=== PATIENT | male | born 1955 | race Caucasian/White ===

== ENCOUNTER 2018-07-22 16:47 | Emergency (ER) | payer OTHER ==
[2018-07-22 16:52] VITALS: BP 134/91
--- NOTE | 2018-07-22 17:39 | ER Document Report ---
HPI - HPI Time Seen by Provider: 07/22/18 17:35 Pain Level: 4 Notes: Patient is a 63-year-old male with a history of hypertension who presents complaining of right heel pain and left knee pain/swelling over the past couple weeks. Patient states that he has been on his feet more at work and has noticed increased pain without any injury or precipitating event. Patient states [facility] so he wanted to get evaluated here. Denies drug allergies. No surgical history to his knee or his ankle/foot. No history of gout or septic arthritis. Denies any headache, fever, neck pain, URI, sore throat, chest pain, palpitations, syncope, cough, shortness of breath, wheeze, dyspnea, abdominal pain, nausea/vomiting/diarrhea, urinary retention, dysuria, hematuria, loss of control of bowel or bladder, numbness/tingling, muscle paralysis/weakness, or rash. - ROS Systems Reviewed and Negative: Yes All other systems reviewed and negative Past Medical History - Social History Smoking Status: Current Some Day Smoker Family History: Reviewed & Not Pertinent Vertical Provider Document - CONSTITUTIONAL Agree With Documented VS: Yes Notes: PHYSICAL EXAMINATION: GENERAL: Well-appearing, well-nourished and in no acute distress. LUNGS: Breath sounds clear to auscultation bilaterally and equal. No wheezes rales or rhonchi. HEART: Regular rate and rhythm without murmurs, rubs, gallops. Musculoskeletal: Lt knee: + mild swelling/effusion noted w/o warmth or erythema. No obvious ecchymosis or deformity. FROM to passive/active and flexion >90 w/o difficulty. Strength 5+/5. N/V intact distal. + mild medial joint line tenderness. Ligamentous grossly stable, limited exam with larger leg size. Mikhail grossly negative. Patellar grind negative. No calf tenderness. Rt foot/ankle: No ecchymosis, swelling, erythema, warmth, or deformity. FROM to passive/active. Strength 5+/5. N/V intact distal. + tenderness to the heel of the foot. No other bony tenderness of the foot/ankle. Achilles intact. Lis Franc maneuver neg. Anterior drawer neg. Extremities: No cyanosis, clubbing, or edema b/l. Peripheral pulses 2+. Capillary refill less than 3 seconds. Chandu neg b/l. NEUROLOGICAL: Normal speech, limping gait. Normal sensory, motor exams PSYCH: Normal mood, normal affect. SKIN: Warm, Dry, normal turgor, no rashes or lesions noted. - INFECTION CONTROL TRAVEL OUTSIDE OF THE [place] IN LAST 30 DAYS: No Course - Re-evaluation Re-evalutation: 07/22/18 18:18 Patient is an afebrile, well-hydrated, 63-year-old male who presents to the ED with left knee pain and effusion (without erythema/warmth), ?internal involvement. Vitals are acceptable without any significant tachycardia, tachypnea, or hypoxia. PE is otherwise unremarkable for any neurovascular compromise, obvious tendon/ligament rupture, obvious fracture/dislocation, septic joint. X-ray was otherwise unremarkable for any acute pathology. Patient declined any Tylenol or ice. Patient is nontoxic-appearing. Patient is able to ambulate and weight-bear although he is limping. No other labs or imaging warranted at this time based on H&P. Conservative measures otherwise for symptoms. Recheck with your PCM in 3-5 days. Schedule consult with orthopedics. Return to the ED with any worsening/concerning symptoms otherwise as reviewed in discharge. Patient is in agreement. - Vital Signs Vital signs: Temp Pulse Resp BP Pulse Ox 97.7 F 87 15 134/91 H 94 07/22/18 16:51 07/22/18 16:51 07/22/18 16:51 07/22/18 16:51 07/22/18 16:51 Discharge - Discharge Clinical Impression: Pain of right heel Left knee pain Qualifiers: Chronicity: acute Qualified Code(s): M25.562 - Pain in left knee Condition: Stable Disposition: HOME, SELF-CARE Additional Instructions: Rest, Ice, Compression, Elevation Tylenol/ibuprofen as needed Light stretches daily Strength exercises as able Moist heat and massage may help F/u with your PCP in 3-5 days for a recheck Schedule an appointment with orthopedics for further evaluation and management Return to the ED with any worsening symptoms and/or development of fever, headache, chest pain, palpitations, syncope, shortness of breath, trouble breathing, abdominal pain, n/v/d, muscle weakness/paralysis, numbness/tingling, swelling, redness, or other worsening symptoms that are concerning to you. Prescriptions: Naproxen 500 mg PO BID #14 tablet Forms: Elevated Blood Pressure, Smoking Cessation Education Referrals: [facility] [Provider Group] - Follow up as needed
--- NOTE | 2018-07-22 18:02 | RADIOLOGY REPORT (SQ) ---
EXAM DESCRIPTION: KNEE LEFT 4 VIEW COMPLETED DATE/TIME: 07/22/2018 5:52 pm REASON FOR STUDY: left knee pain/swelling COMPARISON: None. EXAM PARAMETERS: NUMBER OF VIEWS: Four views. TECHNIQUE: AP, lateral and 2 oblique radiographic images acquired of the left knee. LIMITATIONS: None. FINDINGS: MINERALIZATION: Normal. BONES: No acute fracture or dislocation. No worrisome bone lesions. JOINTS: Moderate effusion. SOFT TISSUES: No significant soft tissue swelling. No radiopaque foreign body. OTHER: No other significant finding. IMPRESSION: NO FRACTURE.Moderate effusion. TECHNICAL DOCUMENTATION: JOB ID: [id number] [place]-72 2010 [employer]- All Rights Reserved Reading location - IP/workstation name: [email or web address]
== END 2018-07-22 18:42 | disposition home or self-care (01) ==
LOC: ER 16:47
DX: M79.671 Pain in right foot (principal); M25.562 Pain in left knee; M25.462 Effusion, left knee; F17.200 Nicotine dependence, unspecified, uncomplicated
CPT/HCPCS: 99283

== ENCOUNTER 2018-10-18 09:21 | Emergency (ER) | payer OTHER ==
[2018-10-18 09:28] VITALS: BP 143/97
[2018-10-18] MEDS ORDERED: CLINDAMYCIN HCL 150 MG CAPSULE PO ONE (09:43)
[2018-10-18] MEDS ORDERED: KETOROLAC TROMETHAMINE INJ/PF 30 MG/1 ML SDV IM ONE (09:43)
--- NOTE | 2018-10-18 09:49 | ER Document Report ---
HPI - HPI Time Seen by Provider: 10/18/18 09:36 Pain Level: 5 Context: Patient is a 63-year-old male presents to the emergency department with a chief complaint of right lower dental pain. Patient states he has had multiple broken teeth and needs to see a dentist but does not have insurance. Patient states he developed pain yesterday and some right lower facial swelling. Patient states he is taken ibuprofen for his left chronic knee pain but this is not helped with his discomfort. Patient reports he did use Orajel with relief of pain. Patient denies fever, difficulty swallowing or breathing. Past Medical History - General Information source: Patient - Social History Smoking Status: Current Some Day Smoker Family History: Reviewed & Not Pertinent - Past Medical History Cardiac Medical History: Reports: Hx Hypertension Pulmonary Medical History: Reports: None EENT Medical History: Reports: None Neurological Medical History: Reports: None Endocrine Medical History: Reports: None Renal/ Medical History: Reports: None. Denies: Hx Peritoneal Dialysis Malignancy Medical History: Reports None GI Medical History: Reports: None Musculoskeletal Medical History: Reports None Skin Medical History: Reports None Psychiatric Medical History: Reports: None Traumatic Medical History: Reports: None Infectious Medical History: Reports: None Past Surgical History: Reports: Hx Orthopedic Surgery - right finger Vertical Provider Document - CONSTITUTIONAL Agree With Documented VS: Yes Exam Limitations: No Limitations General Appearance: No Apparent Distress - INFECTION CONTROL TRAVEL OUTSIDE OF THE [place] IN LAST 30 DAYS: No - HEENT HEENT: Atraumatic, Normocephalic, PERRLA Mouth Diagram: 1 - Broken tooth - with surrounding erythema but no palpable abscess. Pt. does have right lower facial swelling. Airway patent. Patient has extremely poor dentation with multiple broken teeth. - RESPIRATORY Respiratory: Breath Sounds Normal, No Respiratory Distress - CARDIOVASCULAR Cardiovascular: Regular Rate, Regular Rhythm - GI/ABDOMEN Gastrointestinal: Abdomen Soft, Abdomen Non-Tender, Normal Bowel Sounds - NEURO Level of Consciousness: Awake, Alert, Appropriate - DERM Integumentary: Warm, Dry, No Rash Course - Re-evaluation Re-evalutation: 10/18/18 09:49 Due to the patient's right lower facial swelling I will start him on clindamycin. Patient denies allergies. Will give patient his first dose while in the emergency department as well as a shot of Toradol. Patient given strict return precautions. - Vital Signs Vital signs: Temp Pulse Resp BP Pulse Ox 98.1 F 109 H 16 143/97 H 93 10/18/18 09:27 10/18/18 09:27 10/18/18 09:27 10/18/18 09:27 10/18/18 09:27 Discharge - Discharge Clinical Impression: Dental infection, Dental caries, Poor dental hygiene Condition: Stable Disposition: HOME, SELF-CARE Additional Instructions: Today you were seen in the emergency department for a dental infection and mild facial swelling. Your physical examination was consistent with a dental infection. We have given you your first dose of oral antibiotics which is called clindamycin. You will take this medication 3 times per day for the next 7 days to help with the infection. Please take this for its full course even though you may start to feel better. You may also use Tylenol and ibuprofen as needed for the pain. Please follow-up with the [facility] as he may need to have this tooth pulled. Please return to the emergency department if you develop a fever, increased facial swelling, difficulty breathing, difficulty swallowing or any other concerning signs or symptoms. Dental Infection or Abscess You have an infection, perhaps an abscess (pus formation) of the gum around one of your teeth, which is probably decayed. If there is an abscess, it may drain on its own or it may need to be opened or lanced. Severe swelling or drainage around a tooth usually means a deep dental abscess which usually requires evaluation and treatment by a dentist or oral surgeon. Antibiotics may be prescribed while awaiting dental treatment. If you develop high fever with chills, worsening pain, or increasing sw elling in the area, see a dentist or oral surgeon immediately or return to the Emergency Department immediately. Prescriptions: Clindamycin HCl [Cleocin 150 mg Capsule] 450 mg PO TID 7 Days #63 capsule Forms: Smoking Cessation Education Referrals: [facility] [Provider Group] - Follow up as needed
== END 2018-10-18 10:26 | disposition home or self-care (01) ==
LOC: ER 09:21
DX: K04.7 Periapical abscess without sinus (principal); K02.9 Dental caries, unspecified; K08.89 Other specified disorders of teeth and supporting structures; F17.200 Nicotine dependence, unspecified, uncomplicated; I10 Essential (primary) hypertension; M25.569 Pain in unspecified knee; Z79.1 Long term (current) use of non-steroidal anti-inflammatories (NSAID)
CPT/HCPCS: 99282; 96372; J1885

== ENCOUNTER → 2019-03-27 | Outpatient (CLI) | payer OTHER ==
--- NOTE | 2019-03-28 09:58 | RADIOLOGY REPORT (SQ) ---
EXAM DESCRIPTION: MRI LT LOWER JOINT WITHOUT COMPLETED DATE/TIME: 03/27/2019 12:56 pm REASON FOR STUDY: M25.562 PAIN IN LEFT KNEE M25.562 PAIN IN LEFT KNEE COMPARISON: None. TECHNIQUE: Leftknee images acquired and stored on PACS. Multiplanar images include fat sensitive se quences as T1, water sensitive sequences as FST2 or STIR, cartilage sensitive sequences as FSPD, and gradient echo sequences. LIMITATIONS: None. FINDINGS: JOINT AND BURSAE: Large joint effusion. No popliteal cyst. BONE CORTEX AND MARROW: No occult fracture or marrow replacement. ACL: Mucoid degeneration of the ACL. No tear. PCL: Intact. MCL: Intact. No periligamentous edema or fluid. LCL: Intact. No periligamentous edema or fluid. MEDIAL MENISCUS: Nondisplaced flap tear with small vertical radial tear mid meniscus. LATERAL MENISCUS: No tears. No abnormal signal. MEDIAL COMPARTMENT: There is an extremely large osteochondral lesion involving a significant portion of the weight-bearing surface. Measures 3 cm AP by 2.5 cm transverse. Generalize edema with irregul ar cartilage and partial displacement of cartilaginous fragments. LATERAL COMPARTMENT: Cartilage preserved. No bone bruises or reactive marrow edema. No osteophytes. PATELLA: Chondromalacia of the medial facet. Trochlear cartilage is intact. EXTENSOR MECHANISM: Intact. Quadriceps and patella tendons normal. SOFT TISSUES: Adjacent muscles and subcutaneous tissues normal. Normal flow void in popliteal artery and vein. OTHER: No other significant finding. IMPRESSION: Very large osteochondral lesion of the medial femoral condyles with fragmentation, react humble edema, and partial displacement of cartilaginous fragment. Large joint effusion. Chondromalacia patella. Small flap tear with vertical radial component medial meniscus. TECHNICAL DOCUMENTATION: JOB ID: [id number] 2010 [employer]- All Rights Reserved Reading location - IP/workstation name: [email or web address]
== END ==
LOC: WI 12:04
PROVIDERS: ATTEND Orthopaedic Surgery
DX: M25.462 Effusion, left knee (principal); M25.562 Pain in left knee; M22.42 Chondromalacia patellae, left knee

== ENCOUNTER 2019-04-11 05:24 | Day surgery (SDC) | payer OTHER ==
[2019-04-09 10:19] LABS: ABSOLUTE EOSINOPHILS # (AUTO) 0.1 10^3/uL (0.0-0.6); ABSOLUTE LYMPHOCYTES (AUTO) 1.8 10^3/uL (0.5-4.7); ABSOLUTE MONOCYTES (AUTO) 0.7 10^3/uL (0.1-1.4); ABSOLUTE NEUT (AUTO) 4.8 10^3/uL (1.7-8.2); BASOPHILS % (AUTO) 0.6 % (0-2); EOSINOPHILS % (AUTO) 1.4 % (0-6); HEMATOCRIT 45.3 % (37.9-51.0); HEMOGLOBIN 15.8 g/dL (13.5-17.0); LYMPHOCYTES % (AUTO) 24.2 % (13-45); MEAN CORPUSCULAR HEMOGLOBIN 33.8 pg (27.0-33.4); MEAN CORPUSCULAR HGB CONC 34.9 g/dL (32.0-36.0); MEAN CORPUSCULAR VOLUME 97 fl (80-97); MONOCYTES % (AUTO) 9.8 % (3-13); PLATELET COUNT 267 10^3/uL (150-450); RED BLOOD COUNT 4.68 10^6/uL (4.35-5.55); RED CELL DISTRIBUTION WIDTH 13.1 % (11.5-14.0); TOTAL CELLS COUNTED % (AUTO) 100 %; WHITE BLOOD COUNT 7.6 10^3/uL (4.0-10.5)
[2019-04-09 10:50] LABS: ANION GAP 10 (5-19); BLOOD UREA NITROGEN 13 mg/dL (7-20); CALCIUM 9.5 mg/dL (8.4-10.2); CARBON DIOXIDE 29 mmol/L (22-30); CHLORIDE 96 mmol/L (98-107); GLUCOSE 104 mg/dL (75-110); POTASSIUM 4.4 mmol/L (3.6-5.0)
--- NOTE | 2019-04-09 13:28 | RADIOLOGY REPORT (SQ) ---
EXAM DESCRIPTION: CHEST PA/LATERAL COMPLETED DATE/TIME: 04/09/2019 9:22 am REASON FOR STUDY: PRE-OP COMPARISON: None. EXAM PARAMETERS: NUMBER OF VIEWS: two views TECHNIQUE: Digital Frontal and Lateral radiographic views of the chest acquired. RADIATION DOSE: NA LIMITATIONS: none FINDINGS: LUNGS AND PLEURA: No opacities, masses or pneumothorax. No pleural effusion. MEDIASTINUM AND HILAR STRUCTURES: Large hiatal hernia. HEART AND VASCULAR STRUCTURES: Heart normal size. No evidence for failure. BONES: No acute findings. HARDWARE: None in the chest. OTHER: No other significant finding. IMPRESSION: Large hiatal hernia. No acute cardiopulmonary findings. TECHNICAL DOCUMENTATION: JOB ID: [id number] 2010 [employer]- All Rights Reserved Reading location - IP/workstation name: [email or web address]
--- NOTE | 2019-04-09 18:14 | EKG REPORT ---
SEVERITY:- NORMAL ECG - SINUS RHYTHM : Confirmed by: Prachi Jenkins MD 09-Apr-2019 18:13:07
[~2019-04-11 05:24] MED LIST: CEFAZOLIN SODIUM 2 GM in DEXTROSE 5%-WATER 100 ML IV PRN; LACTATED RINGERS 1000 ML IV PRN; LIDOCAINE 0.5% INJ-PF (5 MG/ML) 50 ML SDV SUBCUT PRN
[2019-04-11 06:02] LABS: APPEARANCE,URINE CLEAR; BILIRUBIN,URINE NEGATIVE (NEGATIVE); COLOR,URINE YELLOW; GLUCOSE, URINE NEGATIVE (NEGATIVE); KETONES,URINE NEGATIVE (NEGATIVE); LEUKOCYTE ESTERASE,URINE NEGATIVE (NEGATIVE); NITRITE,URINE NEGATIVE (NEGATIVE); PROTEIN,URINE NEGATIVE (NEGATIVE); URINE SPECIFIC GRAVITY 1.008
[2019-04-11] MEDS ORDERED: BUPIVACAINE HCL 0.5 % INJ/PF 30 ML SDV ONE (07:07)
[2019-04-11] MEDS ORDERED: LIDOCAINE 1%/EPINEPHRINE INJ 20 ML VIAL ONE (07:07)
[2019-04-11] MEDS ORDERED: ONDANSETRON HCL INJ/PF 4 MG/2 ML SDV IV PRN (07:52)
[2019-04-11] MEDS ORDERED: DIPHENHYDRAMINE HCL 50 MG/ML VIAL IV PRN (07:52)
[2019-04-11] MEDS ORDERED: PROMETHAZINE HCL INJ 25 MG/1 ML VIAL IV PRN ×2 (07:52)
[2019-04-11] MEDS ORDERED: FENTANYL CITRATE INJ/PF 100 MCG/2 ML AMPUL IV PRN ×3 (07:52)
[2019-04-11] MEDS ORDERED: MEPERIDINE HCL/PF INJ 25 MG/1 ML DISP.SYRIN IV PRN (07:52)
[2019-04-11] MEDS ORDERED: OXYCODONE-ACETAMINOPHEN 5-325 MG TABLET PO PRN ×2 (07:52)
--- NOTE | 2019-04-11 08:07 | Operative Report ---
Operative Report DATE OF SURGERY: 04/11/19 PREOPERATIVE DIAGNOSIS: Left medial femoral condyle osteochondral lesion POSTOPERATIVE DIAGNOSIS: Left medial femoral condyle osteochondral lesion measuring at least 2-1/2 cm. Medial meniscal tear. Intact ACL. Lateral meniscal tear. Grade I-II chondromalacia lateral compartment. Grade II chondromalacia of the patellofemoral compartment OPERATION: Arthroscopic left partial medial lateral meniscectomy, abrasion chondroplasty of the medial femoral condyle SURGEON: JAGDEEP CHAWLA ANESTHESIA: LMAC TISSUE REMOVED OR ALTERED: Articular cartilage to pathology ESTIMATED BLOOD LOSS: Normal PROCEDURE: With the patient supine on the operating table left lower extremities prepped and draped in sterile fashion. The knee is insufflated with a combination of Marcaine, Xylocaine, and epinephrine. Subsequent medial lateral patella portals are created for the introduction the arthroscope and debridements mentation. The joint is examined in systematic fashion findings as above. Of note there is a large amount of delaminating articular cartilage from the medial femoral condyle that seems to have a layer of a bone still attached. These are debrided and removed using a grabber. A partial medial meniscectomy was performed from approximately 9:00 to 12:00 on the face of the dial. A partial lateral meniscectomy performed from approximately 6:00 to 2:00 on the face of the dial. The large articular defect in the medial femoral condyle is then subjected to microfracture using bone awls. At this point the joint is again sampled in systematic fashion to ensure that no loose bodies remain. The instrumentation was removed. The portals reapproximated interrupted nylon. A sterile compressive dressing was applied. The patient was returned to the PACU in satisfactory condition.
--- NOTE | 2019-04-11 08:08 | Discharge Summary ---
Discharge Summary (SDC) - Discharge Final Diagnosis: Left medial femoral condyle osteochondral lesion Date of Surgery: 04/11/19 Discharge Date: 04/11/19 Condition: Good Treatment or Instructions: Weightbearing as tolerated ambulation. Remove compressive wrap on Tuesday. Underlying OpSite dressing can be left in place until you return to the office. You can shower but after the compressive wrap is removed but please do not immerse it in a tub. [facility] - Discharge Diet: Regular Respiratory Treatments at Home: Deep Breathing/Coughing Discharge Activity: Balance Activity w/Rest, No tub bath Home Care Assistance: None Needed Report the Following to Your Physician Immediately: Shortness of Breath, Fever over 101 Degrees, Drainage-Foul Smelling
[2019-04-11 10:22] VITALS: BP 136/95
== END 2019-04-11 09:45 | disposition home or self-care (01) ==
LOC: OROUT 05:24
PROVIDERS: ATTEND Orthopaedic Surgery
DX: M23.301 Other meniscus derangements, unspecified lateral meniscus, left knee (principal); M23.304 Other meniscus derangements, unspecified medial meniscus, left knee; M22.42 Chondromalacia patellae, left knee; S72.412D Displaced unspecified condyle fracture of lower end of left femur, subsequent encounter for closed fracture with routine healing; X58.XXXD Exposure to other specified factors, subsequent encounter; I10 Essential (primary) hypertension; F17.210 Nicotine dependence, cigarettes, uncomplicated
CPT/HCPCS: 93005; 36415 ×2; 84132; 85025; 80048; 81001; 88305 ×2; 88311; 71046; 93010; 01400; 29880; J2250; J3490 ×2; J0690; J3010; J2405; J7060; J2704; 1400

== ENCOUNTER 2019-04-30 09:07 | Day surgery (SDC) | payer OTHER ==
[~2019-04-30 09:07] MED LIST changes: -CEFAZOLIN SODIUM 2 GM in DEXTROSE 5%-WATER 100 ML IV PRN; -LACTATED RINGERS 1000 ML IV PRN; -LIDOCAINE 0.5% INJ-PF (5 MG/ML) 50 ML SDV SUBCUT PRN; +PROPOFOL INJ 200 MG/20 ML VIAL IV ONE
[2019-04-30 11:23] VITALS: BP 144/96
--- NOTE | 2019-04-30 12:22 | Operative Report ---
Operative Report DATE OF SURGERY: 04/30/19 Operative Report: The risk, benefits and alternatives of the procedure including the risk of bleeding, perforation requiring surgery have been explained to the patient in detail and informed consent has been obtained. Patient is placed in a left, lateral decubital position. Timeout was called. Propofol medication is administered. Rectal examination is done which did not reveal any masses, tears or fissures. An Olympus videoscope was introduced into the patient's rectum. Scope was then carefully advanced all the way to the cecum. Cecum was identified by the usual anatomical landmarks including the ileocecal valve as well as the appendiceal office. Photodocumentation is obtained. Scope was then sequentially pulled back via the various segments of the colon including the ascending colon, back flexure, transverse colon, splenic flexure, descending colon and finally into the rectosigmoid portions of the colon. Retroflexion maneuver is performed. PREOPERATIVE DIAGNOSIS: Personal history of polyp POSTOPERATIVE DIAGNOSIS: Sigmoid polyp was removed via snare polypectomy and retrieved. Diverticulosis without any evidence of diverticulitis. Internal hemorrhoids. Right colon inflammation status post biopsy OPERATION: Colonoscopy with snare polypectomy. Colonoscopy with biopsy SURGEON: ANDI RODRIGUEZ ANESTHESIA: LMAC TISSUE REMOVED OR ALTERED: As noted above. COMPLICATIONS: None. ESTIMATED BLOOD LOSS: None. INTRAOPERATIVE FINDINGS: As noted above. PROCEDURE: Patient tolerated the procedure well. No immediate postprocedure complications are noted. Patient is discharged in good condition. Discharge date 04/30/2019. Discharge diet: Regular. Discharge activity: Regular. 2 to 3-week follow-up to discuss findings. 3 to 5-year surveillance colonoscopy. Patient is instructed to call the office or proceed to the emergency room should there be any further problems or questions. Wait on the pathology.
== END 2019-04-30 11:30 | disposition home or self-care (01) ==
LOC: END 09:07
PROVIDERS: ATTEND Internal Medicine Gastroenterology
DX: Z12.11 Encounter for screening for malignant neoplasm of colon (principal); D12.5 Benign neoplasm of sigmoid colon; K57.30 Diverticulosis of large intestine without perforation or abscess without bleeding; K64.8 Other hemorrhoids; K52.9 Noninfective gastroenteritis and colitis, unspecified; Z86.010 Personal history of colon polyps; F17.210 Nicotine dependence, cigarettes, uncomplicated; Z79.51 Long term (current) use of inhaled steroids; Z79.899 Other long term (current) drug therapy; I10 Essential (primary) hypertension
CPT/HCPCS: 45385; 88305 ×2; 00811; J2704; 45380; 811